=== PATIENT | female | born 1990 | race Caucasian/White ===

== ENCOUNTER 2020-08-22 10:59 | Emergency (ER) | payer OTHER ==
[~2020-08-22] VITALS: Ht 162.6 cm; Wt 70.9 kg
[2020-08-22 11:10] VITALS: BP 125/86
== END 2020-08-22 12:01 | disposition left against medical advice (07) ==
LOC: ED 11:57
DX: R21 Rash and other nonspecific skin eruption (principal)
CPT/HCPCS: 99281